=== PATIENT | male | born 1990 | race American Indian/Alaskan Native ===

== ENCOUNTER 2017-05-20 21:30 | Emergency (ER) | payer OTHER ==
[2017-05-20] MEDS ORDERED: AMIDATE IV ONE (22:12)
--- NOTE | 2017-05-20 23:03 | XRay Report ---
FINAL REPORT PROCEDURE: XR SHOULDER 1V LT TECHNIQUE: Left shoulder radiograph, single frontal view. HISTORY: reduction COMPARISON: 05/21/2017 1:53 a.m. FINDINGS: Fracture(s): None. Joint space(s): There is normal alignment of the glenohumeral and acromioclavicular joints as visualized on this single AP view Soft tissues: Normal. Bone mineralization: Normal. Foreign bodies: None. IMPRESSION: Normal post reduction alignment as visualized on this single view
--- NOTE | 2017-05-20 23:08 | XRay Report ---
FINAL REPORT PROCEDURE: XR SHOULDER 2+V LT TECHNIQUE: LEFT shoulder radiographs including AP views in internal and external rotation. CPT 08667 HISTORY: poss dislocation COMPARISON: No prior studies are available for comparison. FINDINGS: Fracture (s) and/or Dislocation(s): None . Joint space(s): There is anterior inferior dislocation of left glenohumeral joint. Acromioclavicular joint is within normal limits.. Soft tissues: Normal . Bone mineralization: Normal . Foreign bodies: None . IMPRESSION: Anterior inferior dislocation a left glenohumeral joint. No acute fracture.
--- NOTE | 2017-05-20 23:14 | Emergency Department Report ---
ED Upper Extremity Inj HPI - General Chief Complaint: Extremity Injury, Upper Stated Complaint: DISLOCATED SHOULDER Time Seen by Provider: 05/20/17 22:11 Source: patient Mode of arrival: Ambulatory Limitations: No Limitations - History of Present Illness Initial Comments: Patient is a 26-year-old male past medical history of shoulder dislocation who presents with left shoulder dislocation. Patient states that he was playing with his brother when he pulled his shoulder. He states that the onset of this pain was sudden to 10 out of 10 and radiates down throughout his arm. Moving his shoulder makes the pain worse and nothing makes it better. It is an achy type of pain. Patient denies injuring any other part of his body. - Related Data Allergies Allergy/AdvReac Type Severity Reaction Status Date / Time No Known Allergies Allergy Unverified 05/20/17 21:38 ED Review of Systems ROS: Stated complaint: DISLOCATED SHOULDER Other details as noted in HPI Constitutional: denies: chills, fever Eyes: denies: eye pain, eye discharge, vision change ENT: denies: ear pain, throat pain Respiratory: denies: cough, shortness of breath, wheezing Cardiovascular: denies: chest pain, palpitations Endocrine: no symptoms reported Gastrointestinal: denies: abdominal pain, nausea, diarrhea Genitourinary: denies: urgency, dysuria Musculoskeletal: as per HPI, other (left shoulder pain). denies: back pain, joint swelling, arthralgia Skin: denies: rash, lesions Neurological: denies: headache, weakness, paresthesias Psychiatric: denies: anxiety, depression Hematological/Lymphatic: denies: easy bleeding, easy bruising ED Past Medical Hx - Past Medical History Additional medical history: left shoulder dislocation - Surgical History Past Surgical History?: No - Social History Smoking Status: Never Smoker Substance Use Type: Marijuana ED Physical Exam - General Limitations: No Limitations General appearance: alert, in no apparent distress - Head Head exam: Present: atraumatic, normocephalic - Eye Eye exam: Present: normal appearance - ENT ENT exam: Present: mucous membranes moist - Neck Neck exam: Present: normal inspection - Respiratory Respiratory exam: Present: normal lung sounds bilaterally. Absent: respiratory distress - Cardiovascular Cardiovascular Exam: Present: regular rate, normal rhythm. Absent: systolic murmur, diastolic murmur, rubs, gallop - GI/Abdominal GI/Abdominal exam: Present: soft, normal bowel sounds - Rectal Rectal exam: Present: deferred - Expanded Upper Extremity Exam Left Shoulder Exam: Present: deformity, dislocation Forearm Wrist exam: Present: normal inspection Vascular: Present: normal capillary refill, radial pulse, brachial pulse, ulnar pulse - Back Exam Back exam: Present: normal inspection - Neurological Exam Neurological exam: Present: alert, oriented X3 - Psychiatric Psychiatric exam: Present: normal affect, normal mood - Skin Skin exam: Present: warm, dry, intact, normal color. Absent: rash ED Course Vital Signs 05/20/17 05/20/17 05/20/17 21:38 22:23 22:30 Temperature 98.1 F Pulse Rate 121 H 95 H 94 H Pulse Rate [ Intra-Procedure ] Pulse Rate [ Post-Procedure] Pulse Rate [Pre -Procedure] Respiratory 20 29 H Rate Respiratory Rate [Intra- Procedure] Respiratory Rate [Post- Procedure] Respiratory Rate [Pre- Procedure] Blood Pressure 155/82 132/81 Blood Pressure [Intra- Procedure] Blood Pressure [Post-Procedure ] Blood Pressure [Pre-Procedure] O2 Sat by Pulse 100 99 100 Oximetry O2 Sat by Pulse Oximetry [ Intra-Procedure ] O2 Sat by Pulse Oximetry [Post -Procedure] O2 Sat by Pulse Oximetry [Pre- Procedure] 05/20/17 05/20/17 05/20/17 22:42 22:45 22:51 Temperature Pulse Rate 83 87 Pulse Rate [ 84 Intra-Procedure ] Pulse Rate [ 80 Post-Procedure] Pulse Rate [Pre 95 H -Procedure] Respiratory 20 16 Rate Respiratory 15 Rate [Intra- Procedure] Respiratory 20 Rate [Post- Procedure] Respiratory 100 H Rate [Pre- Procedure] Blood Pressure 105/64 Blood Pressure 123/72 [Intra- Procedure] Blood Pressure 112/69 [Post-Procedure ] Blood Pressure 132/81 [Pre-Procedure] O2 Sat by Pulse 100 Oximetry O2 Sat by Pulse 100 Oximetry [ Intra-Procedure ] O2 Sat by Pulse 100 Oximetry [Post -Procedure] O2 Sat by Pulse 100 Oximetry [Pre- Procedure] 05/20/17 05/20/17 05/20/17 23:00 23:15 23:30 Temperature Pulse Rate 77 76 85 Pulse Rate [ Intra-Procedure ] Pulse Rate [ Post-Procedure] Pulse Rate [Pre -Procedure] Respiratory 19 20 15 Rate Respiratory Rate [Intra- Procedure] Respiratory Rate [Post- Procedure] Respiratory Rate [Pre- Procedure] Blood Pressure 113/69 121/69 125/73 Blood Pressure [Intra- Procedure] Blood Pressure [Post-Procedure ] Blood Pressure [Pre-Procedure] O2 Sat by Pulse 100 100 100 Oximetry O2 Sat by Pulse Oximetry [ Intra-Procedure ] O2 Sat by Pulse Oximetry [Post -Procedure] O2 Sat by Pulse Oximetry [Pre- Procedure] - Moderate Sedation Indications: fracture/dislocation redu Presedation Evaluation: Medications were given at approximately 23:00 after time out ASA Class: I Time of Last PO Intake: 17:30 Preparation: youth nutritional monitor applied, pulse oximeter, capnometry used, supplemental O2 applied, suction/airway equipment at bedside, IV secured IV Etomidate Dose (mgs): 15 Complications: none Interventions: oxygen applied Patient Tolerated Procedure: well - Orthopedic Joint Reduction Joint #1 Consent Obtained: verbal consent, written consent Time Out Performed: Yes Side: left Joint Reduction Location: shoulder Analgesia: moderate sedation Shoulder Technique Used (if applicable): other (Mery method ) Post-Reduction Neuro Exam: intact Post-Reduction Vascular Exam: intact Post Reduction X-Ray Obtained: Yes Post Reduction X-Ray Results: reduced Splint Applied: Yes (Sling placed ) Patient Tolerated Procedure: well ED Medical Decision Making - Radiology Data Radiology results: report reviewed, image reviewed Left shoulder x-ray: Shows dislocated left shoulder Left shoulder x-ray: Shows relocated left shoulder after reduction. - Medical Decision Making Chief medical diagnosis: Left shoulder dislocation Differential medical diagnosis: Humerus fracture, before meals separation I will give IV pain medicine, IV sedation manual reduction and shoulder x-ray Patient has dislocated shoulder which has been relocated. Patient is alert and oriented after sedation. He is able tolerate by mouth patient will be sent home with follow-up and a sling. Gave patient return precautions to come back to the ER additional verbal discharge instructions were given. Critical care attestation.: If time is entered above; I have spent that time in minutes in the direct care of this critically ill patient, excluding procedure time. ED Disposition Clinical Impression: Acute pain of left shoulder Dislocation of left shoulder joint Qualifiers: Encounter type: initial encounter Qualified Code(s): S43.005A - Unspecified dislocation of left shoulder joint, initial encounter Disposition: - TO HOME OR SELFCARE Is pt being admited?: No Does the pt Need Aspirin: No Condition: Stable Instructions: Shoulder Dislocation (ED) Referrals: AYSHA MALDONADO MD [Staff Physician] - 3-5 Days Time of Disposition: 23:15
[2017-05-20 23:42] VITALS: BP 125/73
== END 2017-05-20 23:41 | disposition home or self-care (01) ==
LOC: ED 21:30
DX: S43.005A Unspecified dislocation of left shoulder joint, initial encounter (principal); F12.10 Cannabis abuse, uncomplicated; X58.XXXA Exposure to other specified factors, initial encounter; Y93.9 Activity, unspecified; Y92.9 Unspecified place or not applicable; Y99.9 Unspecified external cause status